=== PATIENT | male | born 1965 | race Caucasian/White ===

== ENCOUNTER → 2016-11-22 | Day surgery (SDC) | payer OTHER ==
[~2016-11-22] VITALS: Ht 177.8 cm; Wt 75.0 kg
[~2016-11-22] MED LIST: 0.9% Sodium Chloride 1,000 ML IV SCH; BUSP5TAB3 PO; DULO20CA18 PO; GABA-500 PO; HYDR10CA3 PO; OMEP10CA4 PO; Propofol 10,000 mCg/mL 20 mL Inj ONE; Sodium Chloride LOK Flush 10 mL Syringe IV PRN; TEST2.5G6 TD; TIZA2CAP9 PO; TIZA4TAB4 PO; TRIA0.2525 PO; fentaNYL-PF 50 mCg/mL 2 mL Inj IVPUSH PRN
[2016-11-22 14:45] VITALS: BP 136/84; PULSE 70; RESP 16; O2SAT 98
--- NOTE | 2016-11-22 15:36 | PCM.HPANE ---
Patient Data Surgeon Admitting Provider: Attending Provider:Wilson Bneavides MD Primary Care Physician:Cami Berg Other Provider: Reason for Visit Rectal Bleeding Ht/WT & BMI Height (Feet): 5 Height (Inches): 10 Weight (Kilograms): 75 Body Mass Index 23.00 Allergies Coded Allergies: No Known Drug Allergies (Verified Allergy, Unknown, 11/22/16) Past Anesthesia History Anesthesia History: Denies:: Anesthesia Reactions, Fam Anesthesia Reaction, Fam Malignant Hypertherm, Malignant Hyperthermia Diabetes History Hx Diabetes?: No MRSA MRSA: No Medications Hypertension Medication: No Reported Medications Tizanidine 4 Mg Tablet4 Mg PO DAILY PRN For Spasm 11/22/16 Triazolam 0.25 Mg TabletUnknown Dose PO HS PRN For Anxiety 30 Days 11/20/16 Testosterone 25 Mg/2.5 Gram (1 %) Gel.packetUnknown Dose TD 11/20/16 Omeprazole 10 Mg Capsule.dr10 Mg PO DAILY Ref 0 11/20/16 Hydrocodone Bitartrate (Zohydro ER)10 Mg Cap.er.12hUnknown Dose PO 11/20/16 Gabapentin 100 Mg Sywalct720 Mg PO BID 30 Days Ref 0 11/20/16 Duloxetine 20 Mg Capsule.dr20 Mg PO BID PRN For Anxiety Ref 0 11/20/16 Buspirone 5 Mg TabletUnknown Dose PO BID Ref 0 11/20/16 Discontinued Reported Medications Tizanidine 2 Mg Capsule2 Mg PO 11/22/16 History History of ENT Problems?: No HEENT History: Denies:: Abnormal Airway Cataracts Difficult Intubation Dysphagia Glaucoma Hearing Problem Sinus Problem TMJ Denture Type: None Teeth Condition: Broken Teeth Missing Teeth Hx of Heart Problems?: No Cardiovascular History: Denies:: AICD Pacemaker Valvular Heart Disease Hx of Respiratory Problem?: No Respiratory History: Denies:: Asthma COPD Chest Surgery Cough Dyspnea Emphysema Hemoptysis Oxygen Administration Pneumonia Pulmonary Embolism Tuberculosis Use of C-PAP Machine Use of Inhalers / NEBS Hx Neurologic Problems?: No Neurological History: Denies:: CVA Hx of GI Problems?: Yes Other History/Comment Rectal bleeding Hx of Problems?: No HX of Peritoneal Dialysis: No Hx Musculoskeletal Problems?: Yes Musculoskeletal History: Positive for:: Musculoskeletal Trauma Hx of Psycho/Social Problems?: Yes Psycho Social History: Positive for:: Anxiety Hx Depression Hx Surgeries?: Yes (screws pelvis, femur, arm. ) Hx Any Other Health Problems?: No Hx Diabetes: No Hx Alcohol Use: Yes (6pack- 1/2 case per day)Hx Substance Use: No Smoking Status: Current Every Day Smoker Stop/Bang Treated for Sleep Apnea?: No Do You Have a CPAP Machine?: No S-Snoring: Do You Snore Loudly: No T-Tired: feel tired, fatigued: No O-Obsered: Observed not breath: No P-Blood Pressure: treated: No B- Body Mass Index > 35 kg/m2: No A- Age over 50: Yes N- Neck Large Circumference: No G- Gender Male: Yes KITA Total Score: 2 KITA Risk Assessment: Low Risk, <3 Yes Risk Assessment Category Category 1A: Patient has history of documented sleep apnea, and HAS NOT received any narcotic, sedative or anesthesia administration during this stay. Category 1B: Patient has history of documented sleep apnea, and HAS received any narcotic , sedative or anesthesia administration during this stay Category 2: Patient has SUSPECTED Obstructive Sleep Apnea, and HAS received any narcotic , sedative or anesthesia administration during this stay. Category 3: Patient has SUSPECTED Obstructive Sleep Apnea and HAS NOT received narcotic, sedative or anesthesia administration during this stay. Category 4: Outpatient in Procedural Areas with known sleep apnea or who screen positive for High Risk via the STOP/BANG questionnaire. Exam Exam Vital Signs Vital Signs Date Time Temp Pulse Resp B/P Pulse Ox O2 Delivery O2 Flow Rate FiO2 11/22/16 14:45 70 16 136/84 98 Room Air General Appearance: Alert, Oriented X3, Cooperative, No Acute Distress HEENT/AIRWAY: MP 1 Lungs: Clear to Auscultation, Normal Air Movement Heart: Exam Unremarkable, Regular Rate/Rhythm, No Murmurs/Rubs/Gallops Plan Impression Patient chart reviewed, patient interviewed and anesthestic plan with risks, benefits, and alternatives discussed, and informed consent obtained. Tyler Zacarias MD Nov 22, 2016 15:35
[2016-11-22 15:45] VITALS: BP 137/88; PULSE 85; RESP 16; O2SAT 98
[2016-11-22 15:55] VITALS: BP 164/93; PULSE 65; RESP 16; O2SAT 99
--- NOTE | 2016-11-22 16:18 | ENDO ---
[address] [address] ENDOSCOPY PROCEDURE PATIENT: ZAIRE MARQUES : 1965 MR#: [id number] ADMIT: 11/22/2016 JOB ID: [id number] DATE: 11/22/2016 TYPE OF OPERATION: Colonoscopy with hot snare polypectomy. PREOPERATIVE DIAGNOSIS(ES): Rectal bleeding. POSTOPERATIVE DIAGNOSIS(ES): 1. A 5 mm sigmoid polyp removed by hot snare polypectomy. 2. Small internal hemorrhoids. ANESTHESIA: Monitored anesthesia care. COMPLICATIONS: None. BLOOD LOSS: Minimal. DESCRIPTION OF PROCEDURE: After risks and benefits were explained to the patient, informed consent was obtained. After anesthesia administered, the colonoscope was then inserted per rectum to the cecum. Mucosa carefully examined. Prep of the patient was fair. After the procedure was done, the scope withdrawn and procedure terminated. FINDINGS: Upon inspection of the anus, no masses, hemorrhoids, ulcers, fissures that were seen. Throughout the entire examination, there is a 5 mm sigmoid polyp removed by hot snare polypectomy. There was also a 5 mm polyp. No masses or lesions were seen. Retroflexion showed small internal hemorrhoids. IMPRESSION: 1. Small internal hemorrhoids. 2. A 5 mm sigmoid polyp removed by hot snare polypectomy. RECOMMENDATIONS: Await pathology results. If tubular adenoma, then repeat colonoscopy in five years.
--- NOTE | 2016-11-28 16:13 | PATH ---
SURGICAL PATHOLOGY Attending Physician:Wilson Benavides MD CASE STATUS: Signed Out PATIENT NAME: ZAIRE MARQUES PID: [id number] : 1965 DATE COLLECTED:11/22/2016 00:00 SPECIMEN: Colon, Polyp CLINICAL HISTORY: RECTAL BLEEDING 1). SIGMOID COLON POLYP X1 FINAL DIAGNOSIS: Sigmoid Colon Polyp, Polypectomy: Tubular adenoma. ICD10: D12.5 GROSS DESCRIPTION: Received in formalin, labeled with the patient's name and "sigmoid colon polyp" are two fragments of khan soft tissue ranging from 0.2 x 0.2 x 0.1 cm to 0.4 x 0.3 x 0.2 cm. The fragments are totally submitted in one cassette. [id number]) ICD-9 CODES: CPT CODES: 1: 49711 Electronically Signed Out Tong Rocha MD, Ph.D. [facility] Pathology [facility] [address], [place] [address] Technical component performed at [facility], [facility] [address], [place], [address]
== END | disposition home or self-care (01) ==
LOC: END 00:42
PROVIDERS: ATTEND Internal Medicine Gastroenterology
DX: D12.5 Benign neoplasm of sigmoid colon (principal); K64.8 Other hemorrhoids; K62.5 Hemorrhage of anus and rectum; F17.210 Nicotine dependence, cigarettes, uncomplicated; Z79.899 Other long term (current) drug therapy